=== PATIENT | male | born 1985 | race Two or more races ===

== ENCOUNTER 2018-01-01 21:29 | Emergency (ER) | payer BC ==
--- NOTE | 2018-01-01 22:00 | EDPHY ---
H & P Stated Complaint: B12 SHOT MON, 100.1 FEVER, NOW ENTIRE BUTTOCK RED/PAIN/ SWELLING HPI/ROS: HPI CHIEF COMPLAINT: Cellulitis left gluteus HISTORY OF PRESENT ILLNESS: Patient is a 32-year-old male, he is otherwise healthy no significant medical history states on Wednesday he gave himself a B12 shot in his left gluteus. On Wednesday he knows a little bit of tenderness. However yesterday he noticed erythema swelling and pain to the left gluteus progressively got worse over the last 24 hr. He has reactive left inguinal lymphadenopathy, additionally has area of left hip cellulitis separate from the gluteus cellulitis. His entire left gluteus is inflamed warmth to palpation tender and cellulitic. There is no abscess visualized. He takes B12 shots for supplementation. He denies any fever but T-max at home 100.1. Denies any chest pain or shortness of breath. Denies abdominal pain. Denies rigors or chills. Past Medical History: Denies significant medical history Past Surgical History: Denies surgical history Social History: Denies daily use drugs alcohol tobacco products Family History: Noncontributory ROS REVIEW OF SYSTEMS: A comprehensive 10 point review of systems is otherwise negative aside from elements mentioned in the history of present illness. Exam Constitutional appears well nontoxic triage nursing summary reviewed, vital signs reviewed, awake/alert. Eyes normal conjunctivae and sclera, EOMI, PERRLA. HENT normal inspection, atraumatic, moist mucus membranes, no epistaxis, neck supple/ no meningismus, no raccoon eyes. Respiratory clear to auscultation bilaterally, normal breath sounds, no respiratory distress, no wheezing. Cardiovascular rate normal, regular rhythm, no murmur, no edema, distal pulses normal. Gastrointestinal soft, non-tender, no rebound, no guarding, normal bowel sounds, no distension, no pulsatile mass. Genitourinary no CVA tenderness. Musculoskeletal no midline vertebral tenderness, full range of motion, no calf swelling, no tenderness of extremities, no meningismus, good pulses, neurovascularly intact. Skin left gluteus is swollen diffusely this areas 10 cm x 10 cm,, erythematous , no fluctuance or abscess visualize additionally there is an area of 3 cm x 3 cm to the left hip of cellulitis present. Left inguinal lymphadenopathy present. No crepitus. Neurologic awake, alert and oriented x 3, AAOx3, moves all 4 extremities equally, motor intact, sensory intact, CN II-XII intact, normal cerebellar, normal vision, normal speech. Psychiatric normal mood/affect. Heme/Lymph/Immune no lymphadenopathy. Differential Diagnosis: Includes but is not limited to in a particular order: Left gluteus cellulitis, significant gluteus cellulitis, left hip cellulitis, reactive lymphadenopathy, sepsis, bacteremia Medical Decision Making: Plan for this patient IV establishment blood cultures , lactic acid, inflammatory markers, IV dose of vancomycin, and re-evaluate. Patient may need to be admitted given how significant the cellulitis is. Re-evaluation: Source: Patient - Personal History Current Tetanus/Diphtheria Vaccine: Yes Tetanus Vaccine Date: 2016 - Medical/Surgical History Hx Asthma: Yes Hx Chronic Respiratory Disease: No Hx Diabetes: No Hx Cardiac Disease: No Hx Renal Disease: No Hx Cirrhosis: No Hx Alcoholism: No Other PMH: ASTHMA - Social History Smoking Status: Former smoker Constitutional: Initial Vital Signs Temperature (C) 36.5 C 01/01/18 21:41 Heart Rate 71 01/01/18 21:41 Respiratory Rate 18 01/01/18 21:41 Blood Pressure 138/77 H 01/01/18 21:41 O2 Sat (%) 95 01/01/18 21:41 O2 Delivery Mode Room Air Allergies/Adverse Reactions: No Known Allergies Allergy (Unverified 01/01/18 21:40) Home Medications: Medication Instructions Recorded Cephalexin [Keflex] 500 mg PO Q6H #28 cap 01/01/18 Claritin 01/01/18 Sulfamethox/Tmp 800/160 mg 1 tab PO BID@1000,2200 #14 tab 01/01/18 [Bactrim Ds] Medical Decision Making - Data Points Laboratory Results: Laboratory Results 01/01/18 22:22 01/01/18 22:22 01/01/18 01/01/18 01/01/18 22:27 22:22 22:22 WBC 8.73 10^3/uL 10^3/uL (3.80-9.50) RBC 5.03 10^6/uL 10^6/uL (4.40-6.38) Hgb 15.8 g/dL g/dL (13.7-17.5) Hct 46.4 % % (40.0-51.0) MCV 92.2 fL fL (81.5-99.8) MCH 31.4 pg pg (27.9-34.1) MCHC 34.1 g/dL g/dL (32.4-36.7) RDW 12.2 % % (11.5-15.2) Plt Count 224 10^3/uL 10^3/uL (150-400) MPV 10.4 fL fL (8.7-11.7) Neut % (Auto) 53.6 % % (39.3-74.2) Lymph % (Auto) 35.3 % % (15.0-45.0) Schuyler % (Auto) 5.7 % % (4.5-13.0) Eos % (Auto) 4.8 % % (0.6-7.6) Baso % (Auto) 0.3 % % (0.3-1.7) Nucleat RBC Rel Count 0.0 % % (0.0-0.2) Absolute Neuts (auto) 4.67 10^3/uL 10^3/uL (1.70-6.50) Absolute Lymphs (auto) 3.08 10^3/uL H 10^3/uL (1.00-3.00) Absolute Monos (auto) 0.50 10^3/uL 10^3/uL (0.30-0.80) Absolute Eos (auto) 0.42 10^3/uL H 10^3/uL (0.03-0.40) Absolute Basos (auto) 0.03 10^3/uL 10^3/uL (0.02-0.10) Absolute Nucleated RBC 0.00 10^3/uL 10^3/uL (0-0.01) Immature Gran % 0.3 % % (0.0-1.1) Immature Gran # 0.03 10^3/uL 10^3/uL (0.00-0.10) ESR 4 MM/HR MM/HR (0-15) VBG Lactic Acid 1.1 mmol/L mmol/L (0.7-2.1) Sodium 143 mEq/L mEq/L (135-145) Potassium 4.2 mEq/L mEq/L (3.5-5.2) Chloride 106 mEq/L mEq/L (97-110) Carbon Dioxide 25 mEq/l mEq/l (22-31) Anion Gap 12 mEq/L mEq/L (8-16) BUN 13 mg/dL mg/dL (7-23) Creatinine 1.1 mg/dL mg/dL (0.7-1.3) Estimated GFR > 60 Glucose 100 mg/dL mg/dL (70-100) Calcium 9.8 mg/dL mg/dL (8.5-10.4) C-Reactive Protein < 5.0 mg/L mg/L (<10.0) Medications Given: Discontinued Medications Sodium Chloride (Ns) 1,000 mls @ 0 mls/hr IV EDNOW ONE; Wide Open PRN Reason: Protocol Stop: 01/01/18 22:05 Last Admin: 01/01/18 22:22 Dose: 1,000 mls Vancomycin/Sodium Chloride (Vancomycin 1 Gm (Premix)) 250 mls @ 250 mls/hr IV EDNOW ONE PRN Reason: Protocol Stop: 01/01/18 23:04 Last Admin: 01/01/18 22:48 Dose: 250 mls Departure - Departure Disposition: Home, Routine, Self-Care Clinical Impression: Cellulitis Qualifiers: Site of cellulitis: buttock Qualified Code(s): L03.317 - Cellulitis of buttock Condition: Good Instructions: Cellulitis (ED) Additional Instructions: 1. Return immediately to the emergency room if he develops worsening cellulitis , fever, pain, swelling questions or concerns. 2. Antibiotics as prescribed. 3. If you feel that this is getting worse, more swelling, more pain, more redness I need due to return to the emergency room. Antibiotics as prescribed. Referrals: NONE *PRIMARY CARE P,. [Primary Care Provider] - As per Instructions Prescriptions: Cephalexin [Keflex] 500 mg PO Q6H #28 cap Sulfamethox/Tmp 800/160 mg [Bactrim Ds] 1 tab PO BID@1000,2200 #14 tab
[2018-01-01] MEDS ORDERED: NS 1,000 ML IV ONE (22:04)
[2018-01-01] MEDS ORDERED: VANCOMYCIN HCL/NORMAL SALINE 250 ML IV ONE (22:05)
[2018-01-01 22:37] LABS: PLATELET COUNT 224 10^3/uL (150-400)
[2018-01-01 23:59] VITALS: BP 133/81; PULSE 60; RESP 18; TEMP 98.1; O2SAT 97
== END 2018-01-01 23:58 | disposition home or self-care (01) ==
DX: L03.317 Cellulitis of buttock (principal); E86.9 Volume depletion, unspecified; J45.909 Unspecified asthma, uncomplicated; Z87.891 Personal history of nicotine dependence
CPT/HCPCS: 96365; J3370